=== PATIENT | female | born 1980 | race Hispanic/Latino ===

== ENCOUNTER → 2020-05-30 | Outpatient (CLI) | payer OTHER ==
[~2020-05-30] MED LIST: COVID-19 VACC, MRNA(MODERNA)/PF 100 MCG/0.5 ML VIAL IM ONE
== END | DRG 951 ==
LOC: VACCPMC 16:09
DX: Z23 Encounter for immunization (principal); Z20.822 Contact with and (suspected) exposure to COVID-19
CPT/HCPCS: 0012A; 91301